=== PATIENT | female | born 1975 | race Two or more races ===

== ENCOUNTER 2022-05-14 12:15 | Emergency (ER) | payer MEDICAID, SELFPAY ==
--- NOTE | 2022-05-14 13:21 | ED_ITS ---
HPI - General Adult General Chief complaint: Weakness Stated complaint: Dizzy, Lightheadedness sent by [employer] Related Data Allergies Allergy/AdvReac Type Severity Reaction Status Date / Time No Known Allergies Allergy Verified 05/14/22 13:24 Physical Exam ED Vital Signs: Vital Signs - 24 hr 05/14/22 13:25 Pulse Rate 87 Respiratory Rate 18 Blood Pressure 154/100 H Pulse Oximetry 98 Oxygen Delivery Method Room Air BMI result Body Mass Index 24.4 Course Reevaluation(s) Reevaluation #1: RME: 46 year old female presents w/ nausea, vomiting, weakness, photophobia X 2 days. No CP, SOB, headache, dizziness, vision changes, fevers, chills, trauma PE: benign, neuro non focal, cerbellar intact. NIHSS Plan: labs, urine Time: 13:25 Discharge Plan Discharge Clinical Impression: Weakness, Nausea & vomiting Patient Disposition: Elopement
[2022-05-14 13:25] VITALS: BP 154/100; PULSE 87; RESP 18; O2SAT 98; BMI 24.4
== END 2022-05-14 13:47 | disposition left against medical advice (07) ==
PROVIDERS: Emergency Provider Emergency Medicine
DX: R53.1 Weakness (principal); R42 Dizziness and giddiness; R11.2 Nausea with vomiting, unspecified
CPT/HCPCS: 99282

== ENCOUNTER 2022-05-15 11:07 | Emergency (ER) | payer MEDICAID, SELFPAY ==
--- NOTE | ~2022-05-15 | XR_ITS ---
EXAMINATION: XR CHEST CLINICAL INFORMATION: Dizziness with blurry vision nausea and vomiting COMPARISON: None TECHNIQUE: 2 views of the chest were obtained. FINDINGS: The lungs are clear. No airspace consolidation, pleural effusion, or pneumothorax. The cardiomediastinal silhouette is within normal limits. No acute osseous injury. XR/XR chest 2V IMPRESSION: No acute pulmonary process.
--- NOTE | ~2022-05-15 | CT_ITS ---
EXAMINATION: CT HEAD WITHOUT CONTRAST CLINICAL INFORMATION: Dizziness. Blurry vision. Nausea and vomiting. COMPARISON: No relevant prior imaging. TECHNIQUE: Contiguous axial imaging was performed from the skull base to vertex without intravenous administration of contrast. This CT examination was performed using dose optimization techniques as appropriate, variously including the following: *Automated exposure control *Adjustment of mA and/or kV according to patient size (this includes techniques or standardized protocols for targeted exams where dose is matched to indication/reason for exam; i.e. extremities or head) *Use of iterative reconstruction technique DLP: 586 mGy-cm FINDINGS: There is no acute intracranial hemorrhage or abnormal extra-axial collection. No intracranial mass effect or midline shift. Lateral and third ventricles are normal. No hydrocephalus. Womack-white matter differentiation preserved and there is no evidence of acute territorial infarct. The calvarium and skull base are intact. Mastoid air cells and middle ear cavities are well aerated. No active paranasal sinus disease. CT/CT head/brain wo IV con IMPRESSION: Normal CT scan of the head.
[2022-05-15 11:44] VITALS: BP 137/93; PULSE 75; RESP 18; TEMP 36.6; O2SAT 100; BMI 25.9
--- NOTE | 2022-05-15 11:48 | ED.GENADULT ---
HPI - General Adult General Chief complaint: Nausea/Vomiting/Diarrhea <Ruby Cullen MD - Last Filed: 05/15/22 11:57> Stated complaint: Flu Symptoms <Ruby Cullen MD - Last Filed: 05/15/22 11:57> Time Seen by Provider: 05/15/22 13:28 <Ruby Cullen MD - Last Filed: 05/15/22 11:57> Source: patient <OTONIEL Jennings - Last Filed: 05/15/22 16:15> Mode of arrival: ambulatory <OTONIEL Jennings - Last Filed: 05/15/22 16:15> Limitations: language barrier (Romanian Speaking ) <OTONIEL Jennings - Last Filed: 05/15/22 16:15> History of Present Illness HPI narrative: 46yoF with no Sig PMHx presenting to the ED with complaints of dizziness or any type of movement where she feels like the room is spinning, blurry vision nausea/vomiting for the past 2 days. Reports she is unable to tolerate any fluids at this time or solids. She reports she has never had these symptoms in the past. She reports associated generalized fatigue/malaise ?feeling run down?. She denies any tinnitus, recent falls or head injury or tick bites, CO2 exposure, rashes, neck pain/stiffness, sore throat, nasal congestion, ear pain, cough, chest pain or shortness of breath, palpitation, paresthesias, abdominal pain, diarrhea constipation or black or bloody stools, lower extremity edema or calf tenderness, focal or general weakness or any other symptoms complaints or concerns at this time. <OTONIEL Jennings - Last Filed: 05/15/22 16:15> MD complaint: Dizziness, blurry vision and nausea/vomiting <OTONIEL Jennings - Last Filed: 05/15/22 16:15> Onset (ago): day(s) (2) <OTONIEL Jennings - Last Filed: 05/15/22 16:15> Related Data Home medications: Previous Rx's Medication Instructions Recorded meclizine 25 mg tablet 50 mg PO DAILY PRN dizziness #30 05/15/22 tabs ondansetron HCl 4 mg tablet 4 mg PO Q8H #14 tabs 05/15/22 <Ruby Cullen MD - Last Filed: 05/15/22 11:57> Allergies/adverse reactions: Allergies Allergy/AdvReac Type Severity Reaction Status Date / Time No Known Allergies Allergy Verified 05/14/22 13:24 <Ruby Cullen MD - Last Filed: 05/15/22 11:57> Review of Systems Review of Systems: Constitutional : No Fever, No Chills, No Night Sweats, No Fatigue, No Malaise ENT/Mouth : No Ear Pain, No Nasal Congestion, No Sinus Pain, No sore throat, No Rhinorrhea Eyes: +Blurry Vision, No Eye Pain, No Swelling, No Redness, No Foreign Body, No Discharge Cardiovascular : No Chest Pain, No SOB, No Dyspnea on Exertion, No Orthopnea, No Palpitations Respiratory : No Cough, No Sputum, No Wheezing, No Dyspnea Gastrointestinal : + Nausea, + Vomiting, No Diarrhea, No Constipation, No abdominal Pain, No Hematochezia, No Melena Genitourinary : No Dysuria, No Urinary Frequency, No Urinary Incontinence, No Urgency, No Flank Pain Musculoskeletal : No joint pain, No Myalgias Skin : No lacerations Neuro : +Dizziness, No Focal weakness, no general weakness, No Numbness, No Paresthesias, No Loss of Consciousness, No Dizziness, No Headache <OTONIEL Jennings - Last Filed: 05/15/22 16:15> Yes all other systems are reviewed and are negative <OTONIEL Jennings - Last Filed: 05/15/22 16:15> PMFSH Past Medical History Attestation statement: The following information was validated with the patient. <OTONIEL Jennings - Last Filed: 05/15/22 16:15> Source: old records reviewed and nursing notes reviewed <OTONIEL Jennings - Last Filed: 05/15/22 16:15> Social History Social History: Social History Advance Directives: No <Ruby Cullen MD - Last Filed: 05/15/22 11:57> Physical Exam ED Vital Signs: Vital Signs - 24 hr 05/15/22 11:44 Temperature 97.9 F Pulse Rate 75 Respiratory Rate 18 Blood Pressure 137/93 H Pulse Oximetry 100 Oxygen Delivery Method Room Air BMI result Body Mass Index 25.9 <Ruby Cullen MD - Last Filed: 05/15/22 11:57> Vital Signs - 24 hr 05/15/22 11:44 Temperature 97.9 F Pulse Rate 75 Respiratory Rate 18 Blood Pressure 137/93 H Pulse Oximetry 100 Oxygen Delivery Method Room Air BMI result Body Mass Index 25.9 Vital signs reviewed patient's blood pressure 137/93. Pulse 75. Respiration 18. Temperature 97.9. 100% on room air. <OTONIEL Jennings - Last Filed: 05/15/22 16:15> Appearance: Alert. Oriented X3. No acute distress. Head: Normal external exam. Normocephalic. Atraumatic. Able to rotate head bilaterally. Eyes: PERRLA. EOMI. No nystagmus noted. Conjunctiva and sclera normal. Eyelids normal. Corneal reflex normal. ENT: EAC normal. TM's Normal. Hearing normal. Pharynx normal. Uvula midline. tongue midline. Moist mucous membranes. No trismus noted. No drooling noted. No muffled voice noted. No nystagmus noted. Neck: Normal inspection. Neck supple. FROM. No adenopathy. Trachea midline. Thyroid Normal. No meningeal signs. No neck mass noted. CVS: Normal heart rate and rhythm. Heart sound normal. No murmurs noted. Pulses normal throughout. Respiratory: No respiratory distress. Painless inspiration. Breath sounds normal. No wheezes/rales/rhonchi noted. Chest nontender. No accessory muscle usage noted or decreased air movement noted. Abdomen: Soft and nontender. Bowel sounds normal in all 4 quadrants. No distention noted. No organomegaly noted. No visible injury noted. Back: No CVA tenderness. Full range of motion noted. Skin: Skin warm and dry. Normal skin color. Normal skin turgor. No rashes/lesions/lacerations noted. Extremities: No lower extremity edema. Extremities exhibit normal range of motion. Extremities nontender. Able to shrug shoulders bilaterally and keep up against resistance. Neuro: Oriented X 3. No motor deficit. No sensory deficit. Reflexes normal. Moving all extremities. No focal motor deficits. Cranial nerves II-XI intact bilaterally. Facial strength normal. Normal cognition. Speech normal. Gait normal. Strength 5/5 throughout. No pronator drift. No tremor noted. No fasciculations noted. No rigidity noted. Muscle tone normal throughout. No asterixis noted. Ikvaka-kh-gvyh test normal. Heel to booker test normal. Tandem gait normal. Does not sway with eyes open. Romberg test negative. Rapid alternating movement upper extremity normal. Rapid alternating movement lower extremity normal. Hand drop from overhead Misses face. NIHSS score 0. <OTONIEL Jennings - Last Filed: 05/15/22 16:15> Course Course Course Narrative: 46F without PMH p/w 2 days headache and subjective fevers, feeling fatigued, rundown , N/V+, denies diarrhea, or urinary pain/buring frequency. VSS reviewed GEN: Appears well, NAD HEENT: NC/AT, ears wnl, nasal congestion, pharynx wnl and no adenopathy. LUNGS: CTAB, no wheeze, rhonchi, rales CVS: RRR, no murmurs ABD: NT/ND EXT: skin is warm, dry, not clinically dehydrated Suspect viral symptoms. UA/Upreg, SARS <Ruby Cullen MD - Last Filed: 05/15/22 11:57> Reevaluation(s) Reevaluation #1: 46yoF with no Sig PMHx presenting to the ED with complaints of dizziness or any type of movement where she feels like the room is spinning, blurry vision nausea/vomiting for the past 2 days. Reports she is unable to tolerate any fluids at this time or solids. She reports she has never had these symptoms in the past. She reports associated generalized fatigue/malaise ?feeling run down?. On exam patient is alert oriented x3. Not in any acute distress. No focal neural deficits are noted. Normal steady gait. NIHSS score 0 patient has non disabling symptom not a tPA candidate as patient has non disabling sympttoms and symptoms started 2 days ago. Plan: Labs, EKG, CT scan of brain without contrast, chest x-ray provide a L of IV fluids with 4 mg of Zofran and 50 mg of meclizine re-evaluate. <OTONIEL Jennings - Last Filed: 05/15/22 16:15> Time: 14:00 <OTONIEL Jennings - Last Filed: 05/15/22 16:15> Reevaluation #2: Labs obtained revealed - all labs within normal limits. UA within normal limits no evidence of UTI. Patient negative for . Patient negative for COVID/RSV/flu. - CT scan of brain within normal limits no acute processes noted. Chest x-ray within normal limits no acute processes noted. - patient is now tolerating p.o. fluids and solids she ate while she was in the emergency department. Reports she feels better after eating and the meclizine along with IV fluids. She is not ambulating without any dizziness. Will DC home with symptomatic treatment and instructions return if any new or worsening symptoms follow up with primary care provider. Patient understands agrees with this plan. <OTONIEL Jennings - Last Filed: 05/15/22 16:15> Time: 15:50 <OTONIEL Jennings - Last Filed: 05/15/22 16:15> Medications Administered Discontinued Medications Generic Name Dose Route Start Last Admin Trade Name Jaidenq PRN Reason Stop Dose Admin Acetaminophen 975 mg 05/15/22 11:48 05/15/22 11:52 Acetaminophen 325 Mg Tablet PO 05/15/22 11:49 975 mg ONCE ONE Administration Cyclobenzaprine HCl 10 mg 05/15/22 15:25 05/15/22 16:09 Cyclobenzaprine Hcl 10 Mg Tablet PO 05/15/22 15:26 10 mg ONCE ONE Administration Sodium Chloride 1,000 mls @ 999 mls/hr 05/15/22 14:00 05/15/22 15:01 Ns IVCONT 05/15/22 15:00 999 mls/hr .Q1H1M BRYAN Administration Meclizine HCl 50 mg 05/15/22 13:56 05/15/22 15:03 Meclizine Hcl 25 Mg Tablet PO 05/15/22 13:57 50 mg ONCE ONE Administration Ondansetron HCl 4 mg 05/15/22 11:48 05/15/22 11:54 Ondansetron Odt 4 Mg Tab.Rapdis TRANSLINGU 05/15/22 11:49 4 mg ONCE ONE Administration Ondansetron HCl 4 mg 05/15/22 13:56 05/15/22 14:57 Ondansetron Hcl 4 Mg/2 Ml Vial IVPUSH 05/15/22 13:57 4 mg ONCE ONE Administration <Ruby Cullen MD - Last Filed: 05/15/22 11:57> Medications Administered Discontinued Medications Generic Name Dose Route Start Last Admin Trade Name Yris PRN Reason Stop Dose Admin Acetaminophen 975 mg 05/15/22 11:48 05/15/22 11:52 Acetaminophen 325 Mg Tablet PO 05/15/22 11:49 975 mg ONCE ONE Administration Cyclobenzaprine HCl 10 mg 05/15/22 15:25 05/15/22 16:09 Cyclobenzaprine Hcl 10 Mg Tablet PO 05/15/22 15:26 10 mg ONCE ONE Administration Sodium Chloride 1,000 mls @ 999 mls/hr 05/15/22 14:00 05/15/22 15:01 Ns IVCONT 05/15/22 15:00 999 mls/hr .Q1H1M BRYAN Administration Meclizine HCl 50 mg 05/15/22 13:56 05/15/22 15:03 Meclizine Hcl 25 Mg Tablet PO 05/15/22 13:57 50 mg ONCE ONE Administration Ondansetron HCl 4 mg 05/15/22 11:48 05/15/22 11:54 Ondansetron Odt 4 Mg Tab.Rapdis TRANSLINGU 05/15/22 11:49 4 mg ONCE ONE Administration Ondansetron HCl 4 mg 05/15/22 13:56 05/15/22 14:57 Ondansetron Hcl 4 Mg/2 Ml Vial IVPUSH 05/15/22 13:57 4 mg ONCE ONE Administration <OTONIEL Jennings - Last Filed: 05/15/22 16:15> Medical Decision Making Medical Records Medical records reviewed: Yes I reviewed the patient's medical records. <OTONIEL Jennings - Last Filed: 05/15/22 16:15> Lab Data Lab results reviewed: Yes I reviewed the patient's lab results. <OTONIEL Jennings - Last Filed: 05/15/22 16:15> Result diagrams: : 05/15/22 14:41 05/15/22 15:10 <Ruby Cullen MD - Last Filed: 05/15/22 11:57> Labs: Lab Results 05/15/22 05/15/22 05/15/22 Range/Units 11:54 12:02 12:02 WBC (4.8-10.8) X10*3/uL RBC (4.20-5.50) X10*6/uL Hgb (12.0-16.0) g/dl Hct (37.0-47.0) % MCV (80.0-98.0) fL MCH (27.0-33.0) pg MCHC (31.0-35.0) g/dl RDW (11.0-16.0) % Plt Count (160-400) X10*3/uL MPV (9.4-12.3) fL Immature Gran % (Auto) (0.0-0.4) % Neut % (Auto) (45-73) % Lymph % (Auto) (20-40) % Mckenzie % (Auto) (2-11) % Eos % (Auto) (0-4) % Baso % (Auto) (0-2) % Lymph # (Auto) (1.2-4.9) X10*3/uL M[place] # (Auto) (0.1-1.2) X10*3/uL Eos # (Auto) (0.0-0.4) X10*3/uL Baso # (Auto) (0.0-0.2) X10*3/uL Abs Immat Gran (auto) (0.00-0.03) X10*3/uL Absolute Neuts (auto) (2.0-8.3) x10*3/uL Absolute Nucleated RBC (0.0-0.012) X10*3/uL Nucleated RBC % (auto) (0.0-0.2) /100WBC PT (10.0-13.1) SEC INR (0.9-1.1) Sodium (135-145) mmol/L Potassium (3.3-5.1) mmol/L Chloride (96-108) mmol/L Carbon Dioxide (22-29) mmol/L Anion Gap (12-20) BUN (9-16) mg/dL Creatinine (0.5-1.4) mg/dL Estim Creat Clear Calc Estimated GFR Random Glucose (60-115) mg/dL Calcium (8.4-10.2) mg/dL Magnesium (1.6-2.6) mg/dL Total Bilirubin (0.0-1.0) mg/dL AST (5-31) U/L ALT (0-31) U/L Alkaline Phosphatase (39-117) U/L Troponin I High Sens (<3.5-17.0) ng/L Total Protein (6.5-8.0) g/dL Albumin (3.5-5.0) g/dL Urine Color Yellow Urine Appearance Clear Urine pH 7.5 (5.0-9.0) Ur Specific [place] 1.010 (1.005-1.025) Urine Protein Negative (Neg-Trace) mg/dL Urine Glucose (UA) Negative (Negative) mg/dL Urine Ketones Negative (Negative) mg/dL Urine Blood Negative (Negative) Urine Nitrite Negative (Negative) Ur Leukocyte Esterase Negative (Negative) Urine Test NEGATIVE (NEGATIVE) Influenza Type A (PCR) NEGATIVE (Negative) Influenza Type B (PCR) NEGATIVE (Negative) RSV RNA Qual (PCR) NEGATIVE (Negative) SARS-CoV-2 RNA (RT-PCR) NEGATIVE (Negative) 05/15/22 05/15/22 05/15/22 Range/Units 14:41 14:41 14:41 WBC 7.6 (4.8-10.8) X10*3/uL RBC 4.27 (4.20-5.50) X10*6/uL Hgb 12.5 (12.0-16.0) g/dl Hct 37.5 (37.0-47.0) % MCV 87.8 (80.0-98.0) fL MCH 29.3 (27.0-33.0) pg MCHC 33.3 (31.0-35.0) g/dl RDW 13.0 (11.0-16.0) % Plt Count 235 (160-400) X10*3/uL MPV 11.2 (9.4-12.3) fL Immature Gran % (Auto) 0.3 (0.0-0.4) % Neut % (Auto) 56.2 (45-73) % Lymph % (Auto) 35.3 (20-40) % Mckenzie % (Auto) 6.6 (2-11) % Eos % (Auto) 1.1 (0-4) % Baso % (Auto) 0.5 (0-2) % Lymph # (Auto) 2.7 (1.2-4.9) X10*3/uL M[place]enzie # (Auto) 0.5 (0.1-1.2) X10*3/uL Eos # (Auto) 0.1 (0.0-0.4) X10*3/uL Baso # (Auto) 0.0 (0.0-0.2) X10*3/uL Abs Immat Gran (auto) 0.02 (0.00-0.03) X10*3/uL Absolute Neuts (auto) 4.3 (2.0-8.3) x10*3/uL Absolute Nucleated RBC 0.000 (0.0-0.012) X10*3/uL Nucleated RBC % (auto) 0.0 (0.0-0.2) /100WBC PT 11.7 (10.0-13.1) SEC INR 1.0 (0.9-1.1) Sodium (135-145) mmol/L Potassium (3.3-5.1) mmol/L Chloride (96-108) mmol/L Carbon Dioxide (22-29) mmol/L Anion Gap (12-20) BUN (9-16) mg/dL Creatinine (0.5-1.4) mg/dL Estim Creat Clear Calc Estimated GFR Random Glucose (60-115) mg/dL Calcium (8.4-10.2) mg/dL Magnesium (1.6-2.6) mg/dL Total Bilirubin (0.0-1.0) mg/dL AST (5-31) U/L ALT (0-31) U/L Alkaline Phosphatase (39-117) U/L Troponin I High Sens < 3.5 (<3.5-17.0) ng/L Total Protein (6.5-8.0) g/dL Albumin (3.5-5.0) g/dL Urine Color Urine Appearance Urine pH (5.0-9.0) Ur Specific [place] (1.005-1.025) Urine Protein (Neg-Trace) mg/dL Urine Glucose (UA) (Negative) mg/dL Urine Ketones (Negative) mg/dL Urine Blood (Negative) Urine Nitrite (Negative) Ur Leukocyte Esterase (Negative) Urine Test (NEGATIVE) Influenza Type A (PCR) (Negative) Influenza Type B (PCR) (Negative) RSV RNA Qual (PCR) (Negative) SARS-CoV-2 RNA (RT-PCR) (Negative) 05/15/22 Range/Units 15:10 WBC (4.8-10.8) X10*3/uL RBC (4.20-5.50) X10*6/uL Hgb (12.0-16.0) g/dl Hct (37.0-47.0) % MCV (80.0-98.0) fL MCH (27.0-33.0) pg MCHC (31.0-35.0) g/dl RDW (11.0-16.0) % Plt Count (160-400) X10*3/uL MPV (9.4-12.3) fL Immature Gran % (Auto) (0.0-0.4) % Neut % (Auto) (45-73) % Lymph % (Auto) (20-40) % Mckenzie % (Auto) (2-11) % Eos % (Auto) (0-4) % Baso % (Auto) (0-2) % Lymph # (Auto) (1.2-4.9) X10*3/uL [place] # (Auto) (0.1-1.2) X10*3/uL Eos # (Auto) (0.0-0.4) X10*3/uL Baso # (Auto) (0.0-0.2) X10*3/uL Abs Immat Gran (auto) (0.00-0.03) X10*3/uL Absolute Neuts (auto) (2.0-8.3) x10*3/uL Absolute Nucleated RBC (0.0-0.012) X10*3/uL Nucleated RBC % (auto) (0.0-0.2) /100WBC PT (10.0-13.1) SEC INR (0.9-1.1) Sodium 138 (135-145) mmol/L Potassium 4.5 (3.3-5.1) mmol/L Chloride 103 (96-108) mmol/L Carbon Dioxide 29 (22-29) mmol/L Anion Gap 11 L (12-20) BUN 8 L (9-16) mg/dL Creatinine 0.76 (0.5-1.4) mg/dL Estim Creat Clear Calc 85.5 Estimated GFR > 60 Random Glucose 82 (60-115) mg/dL Calcium 9.5 (8.4-10.2) mg/dL Magnesium 2.0 (1.6-2.6) mg/dL Total Bilirubin 0.3 (0.0-1.0) mg/dL AST 13 (5-31) U/L ALT 11 (0-31) U/L Alkaline Phosphatase 77 (39-117) U/L Troponin I High Sens (<3.5-17.0) ng/L Total Protein 6.7 (6.5-8.0) g/dL Albumin 3.8 (3.5-5.0) g/dL Urine Color Urine Appearance Urine pH (5.0-9.0) Ur Specific [place] (1.005-1.025) Urine Protein (Neg-Trace) mg/dL Urine Glucose (UA) (Negative) mg/dL Urine Ketones (Negative) mg/dL Urine Blood (Negative) Urine Nitrite (Negative) Ur Leukocyte Esterase (Negative) Urine Test (NEGATIVE) Influenza Type A (PCR) (Negative) Influenza Type B (PCR) (Negative) RSV RNA Qual (PCR) (Negative) SARS-CoV-2 RNA (RT-PCR) (Negative) <Ruby Cullen MD - Last Filed: 05/15/22 11:57> Lab Results 05/15/22 05/15/22 05/15/22 Range/Units 11:54 12:02 12:02 WBC (4.8-10.8) X10*3/uL RBC (4.20-5.50) X10*6/uL Hgb (12.0-16.0) g/dl Hct (37.0-47.0) % MCV (80.0-98.0) fL MCH (27.0-33.0) pg MCHC (31.0-35.0) g/dl RDW (11.0-16.0) % Plt Count (160-400) X10*3/uL MPV (9.4-12.3) fL Immature Gran % (Auto) (0.0-0.4) % Neut % (Auto) (45-73) % Lymph % (Auto) (20-40) % [place] % (Auto) (2-11) % Eos % (Auto) (0-4) % Baso % (Auto) (0-2) % Lymph # (Auto) (1.2-4.9) X10*3/uL [place] # (Auto) (0.1-1.2) X10*3/uL Eos # (Auto) (0.0-0.4) X10*3/uL Baso # (Auto) (0.0-0.2) X10*3/uL Abs Immat Gran (auto) (0.00-0.03) X10*3/uL Absolute Neuts (auto) (2.0-8.3) x10*3/uL Absolute Nucleated RBC (0.0-0.012) X10*3/uL Nucleated RBC % (auto) (0.0-0.2) /100WBC PT (10.0-13.1) SEC INR (0.9-1.1) Sodium (135-145) mmol/L Potassium (3.3-5.1) mmol/L Chloride (96-108) mmol/L Carbon Dioxide (22-29) mmol/L Anion Gap (12-20) BUN (9-16) mg/dL Creatinine (0.5-1.4) mg/dL Estim Creat Clear Calc Estimated GFR Random Glucose (60-115) mg/dL Calcium (8.4-10.2) mg/dL Magnesium (1.6-2.6) mg/dL Total Bilirubin (0.0-1.0) mg/dL AST (5-31) U/L ALT (0-31) U/L Alkaline Phosphatase (39-117) U/L Troponin I High Sens (<3.5-17.0) ng/L Total Protein (6.5-8.0) g/dL Albumin (3.5-5.0) g/dL Urine Color Yellow Urine Appearance Clear Urine pH 7.5 (5.0-9.0) Ur Specific [place] 1.010 (1.005-1.025) Urine Protein Negative (Neg-Trace) mg/dL Urine Glucose (UA) Negative (Negative) mg/dL Urine Ketones Negative (Negative) mg/dL Urine Blood Negative (Negative) Urine Nitrite Negative (Negative) Ur Leukocyte Esterase Negative (Negative) Urine Test NEGATIVE (NEGATIVE) Influenza Type A (PCR) NEGATIVE (Negative) Influenza Type B (PCR) NEGATIVE (Negative) RSV RNA Qual (PCR) NEGATIVE (Negative) SARS-CoV-2 RNA (RT-PCR) NEGATIVE (Negative) 05/15/22 05/15/22 05/15/22 Range/Units 14:41 14:41 14:41 WBC 7.6 (4.8-10.8) X10*3/uL RBC 4.27 (4.20-5.50) X10*6/uL Hgb 12.5 (12.0-16.0) g/dl Hct 37.5 (37.0-47.0) % MCV 87.8 (80.0-98.0) fL MCH 29.3 (27.0-33.0) pg MCHC 33.3 (31.0-35.0) g/dl RDW 13.0 (11.0-16.0) % Plt Count 235 (160-400) X10*3/uL MPV 11.2 (9.4-12.3) fL Immature Gran % (Auto) 0.3 (0.0-0.4) % Neut % (Auto) 56.2 (45-73) % Lymph % (Auto) 35.3 (20-40) % [place] % (Auto) 6.6 (2-11) % Eos % (Auto) 1.1 (0-4) % Baso % (Auto) 0.5 (0-2) % Lymph # (Auto) 2.7 (1.2-4.9) X10*3/uL [place] # (Auto) 0.5 (0.1-1.2) X10*3/uL Eos # (Auto) 0.1 (0.0-0.4) X10*3/uL Baso # (Auto) 0.0 (0.0-0.2) X10*3/uL Abs Immat Gran (auto) 0.02 (0.00-0.03) X10*3/uL Absolute Neuts (auto) 4.3 (2.0-8.3) x10*3/uL Absolute Nucleated RBC 0.000 (0.0-0.012) X10*3/uL Nucleated RBC % (auto) 0.0 (0.0-0.2) /100WBC PT 11.7 (10.0-13.1) SEC INR 1.0 (0.9-1.1) Sodium (135-145) mmol/L Potassium (3.3-5.1) mmol/L Chloride (96-108) mmol/L Carbon Dioxide (22-29) mmol/L Anion Gap (12-20) BUN (9-16) mg/dL Creatinine (0.5-1.4) mg/dL Estim Creat Clear Calc Estimated GFR Random Glucose (60-115) mg/dL Calcium (8.4-10.2) mg/dL Magnesium (1.6-2.6) mg/dL Total Bilirubin (0.0-1.0) mg/dL AST (5-31) U/L ALT (0-31) U/L Alkaline Phosphatase (39-117) U/L Troponin I High Sens < 3.5 (<3.5-17.0) ng/L Total Protein (6.5-8.0) g/dL Albumin (3.5-5.0) g/dL Urine Color Urine Appearance Urine pH (5.0-9.0) Ur Specific [place] (1.005-1.025) Urine Protein (Neg-Trace) mg/dL Urine Glucose (UA) (Negative) mg/dL Urine Ketones (Negative) mg/dL Urine Blood (Negative) Urine Nitrite (Negative) Ur Leukocyte Esterase (Negative) Urine Test (NEGATIVE) Influenza Type A (PCR) (Negative) Influenza Type B (PCR) (Negative) RSV RNA Qual (PCR) (Negative) SARS-CoV-2 RNA (RT-PCR) (Negative) 05/15/22 Range/Units 15:10 WBC (4.8-10.8) X10*3/uL RBC (4.20-5.50) X10*6/uL Hgb (12.0-16.0) g/dl Hct (37.0-47.0) % MCV (80.0-98.0) fL MCH (27.0-33.0) pg MCHC (31.0-35.0) g/dl RDW (11.0-16.0) % Plt Count (160-400) X10*3/uL MPV (9.4-12.3) fL Immature Gran % (Auto) (0.0-0.4) % Neut % (Auto) (45-73) % Lymph % (Auto) (20-40) % [place] % (Auto) (2-11) % Eos % (Auto) (0-4) % Baso % (Auto) (0-2) % Lymph # (Auto) (1.2-4.9) X10*3/uL [place] # (Auto) (0.1-1.2) X10*3/uL Eos # (Auto) (0.0-0.4) X10*3/uL Baso # (Auto) (0.0-0.2) X10*3/uL Abs Immat Gran (auto) (0.00-0.03) X10*3/uL Absolute Neuts (auto) (2.0-8.3) x10*3/uL Absolute Nucleated RBC (0.0-0.012) X10*3/uL Nucleated RBC % (auto) (0.0-0.2) /100WBC PT (10.0-13.1) SEC INR (0.9-1.1) Sodium 138 (135-145) mmol/L Potassium 4.5 (3.3-5.1) mmol/L Chloride 103 (96-108) mmol/L Carbon Dioxide 29 (22-29) mmol/L Anion Gap 11 L (12-20) BUN 8 L (9-16) mg/dL Creatinine 0.76 (0.5-1.4) mg/dL Estim Creat Clear Calc 85.5 Estimated GFR > 60 Random Glucose 82 (60-115) mg/dL Calcium 9.5 (8.4-10.2) mg/dL Magnesium 2.0 (1.6-2.6) mg/dL Total Bilirubin 0.3 (0.0-1.0) mg/dL AST 13 (5-31) U/L ALT 11 (0-31) U/L Alkaline Phosphatase 77 (39-117) U/L Troponin I High Sens (<3.5-17.0) ng/L Total Protein 6.7 (6.5-8.0) g/dL Albumin 3.8 (3.5-5.0) g/dL Urine Color Urine Appearance Urine pH (5.0-9.0) Ur Specific [place] (1.005-1.025) Urine Protein (Neg-Trace) mg/dL Urine Glucose (UA) (Negative) mg/dL Urine Ketones (Negative) mg/dL Urine Blood (Negative) Urine Nitrite (Negative) Ur Leukocyte Esterase (Negative) Urine Test (NEGATIVE) Influenza Type A (PCR) (Negative) Influenza Type B (PCR) (Negative) RSV RNA Qual (PCR) (Negative) SARS-CoV-2 RNA (RT-PCR) (Negative) <OTONIEL Jennings - Last Filed: 05/15/22 16:15> Imaging Data CT scan - head: Attestation: I personally reviewed and interpreted this imaging study as follows: <OTONIEL Jennings Last Filed: 05/15/22 16:15> Radiologist's impression: FINDINGS: There is no acute intracranial hemorrhage or abnormal extra-axial collection. No intracranial mass effect or midline shift. Lateral and third ventricles are normal. No hydrocephalus. Womack-white matter differentiation preserved and there is no evidence of acute territorial infarct. The calvarium and skull base are intact. Mastoid air cells and middle ear cavities are well aerated. No active paranasal sinus disease. ? CT/CT head/brain wo IV con IMPRESSION: Normal CT scan of the head. <OTONIEL Jennings Last Filed: 05/15/22 16:15> Chest x-ray: Attestation: I personally reviewed and interpreted this imaging study as follows: <OTONIEL Jennings - Last Filed: 05/15/22 16:15> Radiologist's impression: FINDINGS: The lungs are clear. No airspace consolidation, pleural effusion, or pneumothorax. The cardiomediastinal silhouette is within normal limits. No acute osseous injury. XR/XR chest 2V IMPRESSION: No acute pulmonary process. <OTONIEL Jennings Last Filed: 05/15/22 16:15> ECG Data Attestation: I personally reviewed and interpreted this ECG as follows: <OTONIEL Jennings Last Filed: 05/15/22 16:15> Interpretation: Normal sinus rhythm with ventricular rate of [address] interval normal QRS duration normal QT/QTC interval. No acute ischemic change noted. <OTONIEL Jennings Last Filed: 05/15/22 16:15> Critical Care Time Critical Care Time Critical Care Time: Yes <OTONIEL Jennings - Last Filed: 05/15/22 16:15> Total Critical Care Time: 60 <OTONIEL Jennings - Last Filed: 05/15/22 16:15> Attestation: I personally attest to this time spent taking care of the patient <OTONIEL Jennings - Last Filed: 05/15/22 16:15> Discharge Plan Discharge Clinical Impression: Vertigo, Dizziness, Nausea & vomiting <Ruby Cullen MD - Last Filed: 05/15/22 11:57> Patient Disposition: Home, Self-Care <Ruby Cullen MD - Last Filed: 05/15/22 11:57> Instructions: Vertigo (ED) <Ruby Cullen MD - Last Filed: 05/15/22 11:57> Prescriptions: New ondansetron HCl 4 mg tablet 4 mg PO Q8H Qty: 14 0RF meclizine 25 mg tablet 50 mg PO DAILY PRN (Reason: dizziness) Qty: 30 0RF <Ruby Cullen MD - Last Filed: 05/15/22 11:57> Referrals: Physician,None [Primary Care Provider] - (your pcp) <Ruby Cullen MD - Last Filed: 05/15/22 11:57> Stand Alone Forms: Work/School Release <Ruby Cullen MD - Last Filed: 05/15/22 11:57> Print Language: Romanian <Ruby Cullen MD - Last Filed: 05/15/22 11:57>
[2022-05-15] MEDS: Acetaminophen 325 MG TABLET 975 MG PO (11:52)
[2022-05-15] MEDS: Ondansetron ODT 4 MG TAB.RAPDIS TRANSLINGU (11:54)
[2022-05-15 12:10] LABS: UPreg QC Valid YES; Urine Pregnancy NEGATIVE (NEGATIVE)
[2022-05-15 12:11] LABS: Appearance Urine Clear; Color Urine Yellow; Glucose Urine UA Negative (Negative); Leukocyte Esterase Urine Negative (Negative); Nitrite Urine Negative (Negative); PH 7.5 (5.0-9.0); Urine Blood Negative (Negative); Urine Ketones Negative (Negative); Urine Protein Negative (Neg-Trace)
[2022-05-15 12:42] LABS: Influenza A PCR NEGATIVE (Negative); Influenza B PCR NEGATIVE (Negative); Resp Syncy Virus RNA Qual PCR NEGATIVE (Negative); SARS COV2 PCR INHOUSE NEGATIVE (Negative)
--- NOTE | 2022-05-15 13:56 | ECG_ITS ---
Test Reason : DIZZINESS/BLURRY VISION/N/V Blood Pressure : / mmHG Vent. Rate : 066 BPM Atrial Rate : 066 BPM P-R Int : 138 ms QRS Dur : 074 ms QT Int : 386 ms P-R-T Axes : 073 018 022 degrees QTc Int : 404 ms Normal sinus rhythm Normal ECG No previous ECGs available Referred By: Christiana Trejo Electronically Signed By:AMARJIT GREENE MD
[2022-05-15 14:46] LABS: MANUAL DIFF FLAG NO
[2022-05-15 14:49] LABS: Basophils Percent Auto 0.5 % (0-2); Eosinophils Absolute Auto 0.1 X10*3/uL (0.0-0.4); Eosinophils Percent Auto 1.1 % (0-4); Hematocrit 37.5 % (37.0-47.0); Hemoglobin 12.5 g/dl (12.0-16.0); Imm Gran Abs Auto 0.02 X10*3/uL (0.00-0.03); Imm Gran Pct Auto 0.3 % (0.0-0.4); Lymphocytes Absolute Auto 2.7 X10*3/uL (1.2-4.9); Lymphocytes Percent Auto 35.3 % (20-40); Mean Corpuscular HGB Conc 33.3 g/dl (31.0-35.0); Mean Corpuscular Hemoglobin 29.3 pg (27.0-33.0); Mean Corpuscular Volume 87.8 fL (80.0-98.0); Mean Platelet Volume 11.2 fL (9.4-12.3); Monocytes Absolute Auto 0.5 X10*3/uL (0.1-1.2); Monocytes Percent Auto 6.6 % (2-11); Neutrophils Absolute Auto 4.3 x10*3/uL (2.0-8.3); Neutrophils Percent Auto 56.2 % (45-73); Platelet Count 235 X10*3/uL (160-400); Red Blood Count 4.27 X10*6/uL (4.20-5.50); White Blood Count 7.6 X10*3/uL (4.8-10.8)
[2022-05-15 14:56] LABS: Prothrombin Time 11.7 SEC (10.0-13.1)
[2022-05-15] MEDS: ondansetron HCL 4 MG/2 ML VIAL IVPUSH (14:57)
[2022-05-15] MEDS: 0.9 % Sodium Chloride 1,000 ML 999 ML IVCONT (15:01)
[2022-05-15] MEDS: Meclizine HCl 25 MG TABLET 50 MG PO (15:03)
[2022-05-15 15:37] LABS: Troponin-I High Sensitivity < 3.5 ng/L (<3.5-17.0)
[2022-05-15 15:40] LABS: Alanine Aminotransferase 11 U/L (0-31); Albumin Level 3.8 g/dL (3.5-5.0); Alkaline Phosphatase 77 U/L (39-117); Anion Gap 11 (12-20); Aspartate Amino Transferase 13 U/L (5-31); Bilirubin Total 0.3 mg/dL (0.0-1.0); Blood Urea Nitrogen 8 mg/dL (9-16); Calcium 9.5 mg/dL (8.4-10.2); Carbon Dioxide 29 mmol/L (22-29); Chloride 103 mmol/L (96-108); Creatinine Clr Calc Pharmacy 85.5; Estimated Glomerular Filt Rate > 60; Glucose Random 82 mg/dL (60-115); Potassium 4.5 mmol/L (3.3-5.1); Sodium 138 mmol/L (135-145); Total Protein 6.7 g/dL (6.5-8.0)
[2022-05-15] MEDS: Cyclobenzaprine HCl 10 MG TABLET PO (16:09)
== END 2022-05-15 16:31 | disposition home or self-care (01) ==
PROVIDERS: Physician Assistant Medical; Student in an Organized Health Care Education/Training Program; Emergency Provider Emergency Medicine
DX: R42 Dizziness and giddiness (principal); R11.2 Nausea with vomiting, unspecified; H53.8 Other visual disturbances; Z20.822 Contact with and (suspected) exposure to COVID-19; Z79.899 Other long term (current) drug therapy
CPT/HCPCS: 0241U; 36415; 70450; 71046; 80053; 81003; 81025; 83735; 84484; 85025; 85610; 93005; 96361; 96374; 99284; J2405